=== PATIENT | male | born 1965 | race Caucasian/White ===

== ENCOUNTER 2016-10-25 00:19 | Emergency (ER) | payer MEDICARE ==
[2016-10-25] MEDS ORDERED: Robitussin AC Syrup Unit Dose Cup PO PRN (00:21)
[2016-10-25] MEDS ORDERED: Rocephin 1000 MG INJ IM ONE (00:21)
[2016-10-25] MEDS ORDERED: Zithromax 250 MG TABLET PO ONE (00:21)
--- NOTE | 2016-10-25 00:27 | ERPHSYRPT ---
- History of Present Illness Time Seen by Provider: 10/25/16 00:19 Source: patient Exam Limitations: no limitations Physician History: TODAY PT HAS HAD A NON-PRODUCTIVE COUGH AND FEVER UP TO 103 DEGREES; DENIES CHEST PAIN, ABDOMINAL PAIN, VOMITING. Allergies/Adverse Reactions: No Known Drug Allergies Allergy (Unverified 08/02/13 05:15) Home Medications: Allopurinol 100 mg [Zyloprim 100 mg] 100 mg PO DAILY 08/02/13 [History] Carvedilol 12.5 mg [Coreg 12.5 mg] 12.5 mg PO DAILY 08/02/13 [History] Clopidogrel Bisulfate 75 mg [PLAVIX 75 MG Tablet] 75 mg PO DAILY 08/02/13 [History] Fluoxetine HCl 20 mg [Prozac 20 MG] 20 mg PO DAILY 08/02/13 [History] Glipizide 10 mg [Glucotrol 10 MG] 10 mg PO BID 08/02/13 [History] Lisinopril 5 mg [Zestril 5 MG] 5 mg PO DAILY 08/02/13 [History] Metformin HCl 500 mg [Glucophage 500 MG] 500 mg PO DAILY 08/02/13 [History ] Simvastatin 10 mg [Zocor 10MG] 10 mg PO DAILY 08/02/13 [History] Hx Tetanus, Diphtheria Vaccination/Date Given: (unsure) Hx Influenza Vaccination/Date Given: Yes (2012) Hx Pneumococcal Vaccination/Date Given: Yes - Review of Systems Constitutional: Fever Respiratory: Cough Cardiac: No Chest Pain Abdominal/Gastrointestinal: No Abdominal Pain, No Vomiting All Other Systems: Reviewed and Negative - Past Medical History Pertinent Past Medical History: Yes Neurological History: Stroke ENT History: No Pertinent History Cardiac History: Hypertension Respiratory History: No Pertinent History Endocrine Medical History: Diabetes Type II Musculoskeletal History: No Pertinent History GI Medical History: No Pertinent History History: No Pertinent History Psycho-Social History: Anxiety Male Reproductive Disorders: No Pertinent History Other Medical History: Gout - Past Surgical History Past Surgical History: Yes Neuro Surgical History: No Pertinent History Cardiac: No Pertinent History Respiratory: No Pertinent History Gastrointestinal: No Pertinent History Genitourinary: No Pertinent History Musculoskeletal: Other Male Surgical History: No Pertinent History Other Surgical History: foot surgery - Social History Smoking Status: Never smoker Exposure to second hand smoke: No Drug Use: none Patient Lives Alone: Yes - Physical Exam General Appearance: alert Eye Exam: other (EXOTROPIA) Ears, Nose, Throat Exam: moist mucous membranes, other (CERUMEN OCCLUSION OF BOTH EARS) Neck Exam: normal inspection Respiratory Exam: other (BRONCHIAL BREATH SOUNDS OVER ALL [place].) Cardiovascular Exam: normal heart sounds Gastrointestinal/Abdomen Exam: soft, normal bowel sounds Back Exam: normal range of motion Extremity Exam: other (LEFT HEMIPARESIS(ONGOING).), No pedal edema Neurologic Exam: alert, cooperative Skin Exam: warm, dry - Course Nursing assessment & vital signs reviewed: Yes - Departure Time of Disposition: 00:28 Departure Disposition: Home Clinical Impression: BRONCHITIS Condition: Fair Critical Care Time: No Instructions: Bronchitis Additional Instructions: FOLLOW UP WITH PRIVATE DOCTOR TOMORROW. Prescriptions: Guaifenesin/Codeine Phosphate [Robitussin AC Syrup] 10 ml PO Q4H PRN PRN #120 ml PRN Reason: Cough Azithromycin 250 mg [Zithromax 250 MG TABLET] 250 mg PO ZPACK #6 tablet
[2016-10-25] MEDS ORDERED: Zithromax 250 MG TABLET ONE (00:34)
[2016-10-25] MEDS ORDERED: Rocephin 1000 MG INJ ONE (00:34)
[2016-10-25] MEDS ORDERED: Robitussin AC Syrup Unit Dose Cup ONE (00:34)
[2016-10-25 01:23] VITALS: BP 114/67; PULSE 84; O2SAT 93
== END 2016-10-25 01:24 | disposition home or self-care (01) ==
LOC: ED 00:19
DX: J40 Bronchitis, not specified as acute or chronic (principal); R50.9 Fever, unspecified; R05 Cough; E11.8 Type 2 diabetes mellitus with unspecified complications; I10 Essential (primary) hypertension; Z79.84 Long term (current) use of oral hypoglycemic drugs; Z79.899 Other long term (current) drug therapy
CPT/HCPCS: 99283; A9270 ×2; J0696

== ENCOUNTER 2019-10-05 21:30 | Emergency (ER) | payer MEDICARE ==
--- NOTE | 2019-10-05 22:13 | ERPHSYRPT ---
- History of Present Illness Source: patient, family Exam Limitations: no limitations Patient Subjective Stated Complaint: Patient states " i have been running a fever all day". Patient states " I have been having an annoying cough. Triage Nursing Assessment: Patient arrived to ER with Mother. Patient gait slow and steady. Patient A/O times 4. Patient answers questions appropriatley. Patient states he has been running a fever all day and that it has gotten up to 101. Mother states she has been giving him Tylenol most of day. Mother concerned she is to have surgery on Sunday. Patient bilateral lungs clear A/ P throughout. Patient denies SOB. Patient denies chest pain. No respiratory distress noted. Patient states he isn't coughing up anything. Patient with Left Hemiplegia R/T S/P stroke in 2010. Patient denies pain or discomfort. Temp upon arrival 98.5 oral. Oral mucosa clean, pink, moist. Skin turgor < 3 seconds. No S /S of dehydration noted. Physician History: Cough and fever today. Timing/Duration: today Cough Quality/Degree: dry cough Possible Cause: no prior episodes Modifying Factors: Improves With: nothing Associated Symptoms: fever, cough International travel in last 2 weeks: No Allergies/Adverse Reactions: No Known Drug Allergies Allergy (Unverified 10/05/19 21:56) Home Medications: Allopurinol 100 mg [Zyloprim 100 mg] 100 mg PO DAILY 08/02/13 [History] Carvedilol 12.5 mg [Coreg 12.5 mg] 12.5 mg PO DAILY 08/02/13 [History] Clopidogrel Bisulfate 75 mg [PLAVIX 75 MG Tablet] 75 mg PO DAILY 08/02/13 [History] Fluoxetine HCl 20 mg [Prozac 20 MG] 20 mg PO DAILY 08/02/13 [History] Glipizide 10 mg [Glucotrol 10 MG] 10 mg PO BID 08/02/13 [History] Lisinopril 5 mg [Zestril 5 MG] 5 mg PO DAILY 08/02/13 [History] Metformin HCl 500 mg [Glucophage 500 MG] 500 mg PO DAILY 08/02/13 [History ] Simvastatin 10 mg [Zocor 10MG] 10 mg PO DAILY 08/02/13 [History] Hx Tetanus, Diphtheria Vaccination/Date Given: Yes Hx Influenza Vaccination/Date Given: Yes Hx Pneumococcal Vaccination/Date Given: Yes Immunizations Up to Date: Yes - Review of Systems Constitutional: Fever, No Chills Eyes: No Symptoms Ears, Nose, & Throat: No Symptoms Respiratory: Cough, No Dyspnea Cardiac: No Chest Pain, No Edema, No Syncope Abdominal/Gastrointestinal: No Abdominal Pain, No Nausea, No Vomiting, No Diarrhea Genitourinary Symptoms: No Dysuria Musculoskeletal: No Back Pain, No Neck Pain Skin: No Rash Neurological: No Dizziness, No Focal Weakness, No Sensory Changes Psychological: No Symptoms Endocrine: No Symptoms All Other Systems: Reviewed and Negative - Past Medical History Pertinent Past Medical History: Yes Neurological History: Stroke ENT History: No Pertinent History Cardiac History: Hypertension Respiratory History: No Pertinent History Endocrine Medical History: Diabetes Type II Musculoskeletal History: No Pertinent History GI Medical History: No Pertinent History History: No Pertinent History Psycho-Social History: Anxiety Male Reproductive Disorders: No Pertinent History Other Medical History: Gout, left hemiplegia s/p stroke - Past Surgical History Past Surgical History: Yes Neuro Surgical History: No Pertinent History Cardiac: No Pertinent History Respiratory: No Pertinent History Gastrointestinal: No Pertinent History Genitourinary: No Pertinent History Musculoskeletal: Other Male Surgical History: No Pertinent History Other Surgical History: foot surgery - Social History Smoking Status: Never smoker Exposure to second hand smoke: No Drug Use: none Patient Lives Alone: Yes - Nursing Vital Signs Nursing Vital Signs: Initial Vital Signs Temperature 98.5 F 10/05/19 21:46 Pulse Rate 91 H 10/05/19 21:46 Respiratory Rate 16 10/05/19 21:46 Blood Pressure 125/70 10/05/19 21:46 O2 Sat by Pulse Oximetry 92 L 10/05/19 21:46 Pain Scale Pain Intensity 0 - Physical Exam General Appearance: no apparent distress, alert Eye Exam: PERRL/EOMI, eyes nml inspection Ears, Nose, Throat Exam: normal ENT inspection, TMs normal, pharynx normal, moist mucous membranes Neck Exam: normal inspection, non-tender, supple, full range of motion Respiratory Exam: normal breath sounds, lungs clear, No respiratory distress Cardiovascular Exam: regular rate/rhythm, normal heart sounds Gastrointestinal/Abdomen Exam: soft, No tenderness Rectal Exam: deferred Back Exam: normal inspection, No CVA tenderness, No vertebral tenderness Extremity Exam: normal inspection, normal range of motion Neurologic Exam: alert, oriented x 3, cooperative, normal mood/affect, sensation nml, No motor deficits Skin Exam: normal color, warm, dry, No rash Lymphatic Exam: No adenopathy SpO2: 92 - Course Nursing assessment & vital signs reviewed: Yes Ordered Tests: Medication Summary Generic Name Dose Route Start Last Admin Trade Name Chavez PRN Reason Stop Dose Admin Azithromycin 500 mg 10/05/19 23:21 Zithromax 250 Mg Tablet PO 10/05/19 23:22 STAT ONE Lab/Rad Data: Laboratory Results 10/05/19 Range/Units 21:51 Influenza Type A Ag NEGATIVE (NEGATIVE) Influenza Type B Ag NEGATIVE (NEGATIVE) RSV (PCR) NEGATIVE (Negative) Group A Strep Antibody NEGATIVE (NEGATIVE) - Progress Progress: improved Air Movement: good Progress Note: 10/05/19 23:22 Swabs negative. Given patient's fever and cough, will treated as bronchitis. Patient otherwise looks and appears normal. Examination was completely benign. Will discharge home on Z-Alec. Antibiotics given: No Counseled pt/family regarding: lab results, diagnosis, need for follow-up - Departure Departure Disposition: Home Clinical Impression: Bronchitis Condition: Stable Critical Care Time: No Referrals: KADEEM LEE MD [Primary Care Provider] - Instructions: Acute Bronchitis Additional Instructions: Take meds as prescribed. Tylenol or motrin for fever. Hydration. Follow up with PCP in 2-3 days for recheck. Return to ER if worse. Prescriptions: Amoxicillin/Potassium Clav [Augmentin 875-125 Tablet] 1 each PO BID 10 Days #20 tablet
[2019-10-05 23:12] LABS: Group A Strep NEGATIVE (NEGATIVE); INFLUENZA A NEGATIVE (NEGATIVE); INFLUENZA B NEGATIVE (NEGATIVE); RESPIRATORY SYNCTIAL VIRUS NEGATIVE (Negative)
[2019-10-05] MEDS ORDERED: Zithromax 250 MG TABLET PO ONE (23:21)
[2019-10-05] MEDS ORDERED: Zithromax 250 MG TABLET ONE (23:27)
[2019-10-05 23:36] VITALS: BP 127/66; PULSE 92; O2SAT 93
== END 2019-10-05 23:43 | disposition home or self-care (01) ==
LOC: ED 21:30
DX: J40 Bronchitis, not specified as acute or chronic (principal)
CPT/HCPCS: 87631; 87651; 99283; A9270-GY

== ENCOUNTER 2022-02-10 13:50 | Emergency (ER) | payer MEDICARE ==
--- NOTE | 2022-02-10 14:08 | ERPHSYRPT ---
- History of Present Illness Time Seen by Provider: 02/10/22 14:08 Source: patient Exam Limitations: no limitations Physician History: This is a 56-year-old white male patient has a history of renal issues and sees Dr. Swenson (digital imager) for this issue. He also has a history of elevated cholesterol, diabetes hypertension and gout. He is on Plavix. His primary care doctor is Dr. Lee. Patient recently was discharged from an outside facility and his digital imager ordered labs which she was getting obtained when he fell and hit his head. Patient did receive in-hospital dialysis but has not yet been scheduled for outpatient dialysis. Patient stated that he turned and twisted and lost his balance and fell. He stated that he did not pass out. Lab sent the patient to the emergency department for evaluation. His systolic blood pressures in the 90s upon arrival. Lab had not drawn his blood yet. I am not ordering any labs since they have already been drawn. A urinalysis was also ordered and we will await these lab results. We will change the order to stat labs. Occurred: just prior to arrival Injuries/Pain Location: head (1-1/2 cm laceration left lateral periorbital area) Loss of Consciousness: no loss of consciousness Severity of Pain-Max: none Severity of Pain-Current: none Modifying Factors: Improves With: nothing Associated Symptoms (Fall): denies symptoms Allergies/Adverse Reactions: No Known Drug Allergies Allergy (Verified 02/10/22 14:23) Home Medications: Allopurinol 100 mg [Zyloprim 100 mg] 100 mg PO DAILY 08/02/13 [History] Carvedilol 12.5 mg [Coreg 12.5 mg] 12.5 mg PO DAILY 08/02/13 [History] Clopidogrel Bisulfate [PLAVIX 75 MG Tablet] 75 mg PO DAILY 08/02/13 [History] Fluoxetine HCl 20 mg [Prozac 20 MG] 20 mg PO DAILY 08/02/13 [History] Glipizide 10 mg [Glucotrol 10 MG] 10 mg PO BID 08/02/13 [History] Lisinopril 5 mg [Zestril 5 MG] 5 mg PO DAILY 08/02/13 [History] Metformin HCl 500 mg [Glucophage 500 MG] 500 mg PO DAILY 08/02/13 [History] Simvastatin 10 mg [Zocor 10MG] 10 mg PO DAILY 08/02/13 [History] Hx Tetanus, Diphtheria Vaccination/Date Given: Yes Hx Influenza Vaccination/Date Given: Yes Hx Pneumococcal Vaccination/Date Given: Yes Travel Risk - International Travel Have you traveled outside of the country in past 3 weeks: No - Coronavirus Screening Are you exhibiting any of the following symptoms?: No Close contact with a COVID-19 positive Pt in past 14-21 Days: No - Review of Systems Constitutional: No Symptoms Eyes: Other (1-1/2 cm well approximated laceration left lateral periorbital area), No Eye Pain, No Eye Redness, No Vision Changes Ears, Nose, & Throat: No Symptoms Respiratory: No Symptoms Cardiac: No Symptoms Abdominal/Gastrointestinal: No Symptoms Genitourinary Symptoms: No Symptoms Musculoskeletal: No Symptoms Skin: No Symptoms Neurological: No Symptoms Psychological: No Symptoms Endocrine: No Symptoms Hematologic/Lymphatic: No Symptoms Immunological/Allergic: No Symptoms All Other Systems: Reviewed and Negative - Past Medical History Pertinent Past Medical History: Yes Neurological History: Stroke ENT History: No Pertinent History Cardiac History: Hypertension Respiratory History: No Pertinent History Endocrine Medical History: Diabetes Type II Musculoskeletal History: No Pertinent History GI Medical History: No Pertinent History History: No Pertinent History Psycho-Social History: Anxiety Male Reproductive Disorders: No Pertinent History Other Medical History: Gout, left hemiplegia s/p stroke - Past Surgical History Past Surgical History: Yes Neuro Surgical History: No Pertinent History Cardiac: No Pertinent History Respiratory: No Pertinent History Gastrointestinal: No Pertinent History Genitourinary: No Pertinent History Musculoskeletal: Other Male Surgical History: No Pertinent History Other Surgical History: foot surgery - Social History Smoking Status: Never smoker Exposure to second hand smoke: No Drug Use: none Patient Lives Alone: Yes - Nursing Vital Signs Nursing Vital Signs: Initial Vital Signs Temperature 96.5 F 02/10/22 14:23 Pulse Rate 78 02/10/22 14:23 Respiratory Rate 18 02/10/22 14:23 Blood Pressure 76/47 02/10/22 14:23 O2 Sat by Pulse Oximetry 98 02/10/22 14:23 Pain Scale Pain Intensity 0 - [place]ega Coma Score Best Eye Response ([place]): (4) open spontaneously Best Verbal Response ([place]): (5) oriented Best Motor Response ([place]): (6) obeys commands [place] Total: 15 - Physical Exam General Appearance: no apparent distress, alert Head Injury: lacerations (1 and half centimeter, well approximated, not actively bleeding laceration left lateral periorbital area. No foreign body present) Eye Exam: PERRL/EOMI, eyes nml inspection ENT Exam: airway nml, nml ext.inspection, No evidence of ENT injury, No dental injury Neck Exam: supple, trachea midline, full range of motion, normal alignment, normal inspection Respiratory/Chest Exam: No chest tenderness, No respiratory distress, No accessory muscle use Gastrointestinal Exam: No tenderness Rectal Exam: not done Back Exam: normal inspection, normal range of motion, No CVA tenderness, No vertebral tenderness Extremity Exam: normal inspection, normal range of motion, capillary refill <3 sec, pelvis stable Neurologic Exam: alert, oriented x 3, cooperative, tipple supervisor II-XII nml as tested, normal mood/affect, nml cerebellar function, nml station & gait, sensation nml Skin Exam: laceration SpO2 Interpretation: normal (See above) O2 Delivery: Room Air Procedures - Laceration/Wound Repair Left Lateral Face Time of Procedure: 14:51 Wound Location: Left, face (Left lateral periorbital region) Wound Length (cm): 1.5 Wound's Depth, Shape: superficial, linear Irrigated: Yes Hibiclens Prep: Yes Wound Repaired With: Steri-strips, Dermabond Progress: 02/10/22 14:51 No complications. Patient told the procedure well. Ordered Tests: Active Orders 24 hr Category Date Time Status IV Insertion STAT Care 02/10/22 14:34 Active Wound Care STAT Care 02/10/22 15:07 Active HEAD WITHOUT CONTRAST [CT] Stat Exams 02/10/22 14:33 Completed Medication Summary Discontinued Medications Generic Name Dose Route Start Last Admin Trade Name Freq PRN Reason Stop Dose Admin Sodium Chloride 1,000 mls @ 999 mls/hr 02/10/22 14:34 02/10/22 14:38 Sodium Chloride 0.9% 1000 Ml IV 02/10/22 15:34 999 mls/hr .Q1H1M STA Administration Sodium Chloride Confirm 02/10/22 14:38 Sodium Chloride 0.9% 1000 Ml Administered 02/10/22 14:39 Dose 1,000 mls @ ud .ROUTE .[facility] - Progress Progress: improved Progress Note: 02/10/22 15:43 CAT scan of the head without contrast shows no acute intracranial bleed or infarct. There is evidence of old infarcts in the right basal ganglia. Medical decision making: This patient is no acute intracranial bleed or infarction. His creatinine is in a reasonable range at 1.5 to. His electrolytes are reasonable as well. His sodium was 132 and his potassium level is 5.4. We will discharge him to home and he is to follow-up with his digital imager and primary care physician. Counseled pt/family regarding: lab results, diagnosis, need for follow-up, rad results - Departure Departure Disposition: Home Clinical Impression: Fall with injury, Laceration of face Condition: Stable Critical Care Time: No Referrals: KADEEM LEE MD [Primary Care Provider] - Follow up/PCP as directed Additional Instructions: Keep the laceration repair site clean and dry for 36 hours. After 36 hours may wash the site daily. Blot dry use a hairdryer. Leave the Steri-Strips in place till he follow-up on their own. Stop your Plavix for 36 hours. May restart your Plavix after 36 hours. Follow-up with your digital imager and primary care doctor for further evaluation and management.
[2022-02-10] MEDS ORDERED: Sodium Chloride 0.9% 1000 ML 1,000 ML IV STA (14:34)
[2022-02-10] MEDS ORDERED: Sodium Chloride 0.9% 1000 ML 1,000 ML ONE (14:38)
--- NOTE | 2022-02-10 15:18 | XRAY ---
Exam: CT of the head without IV contrast from 02/10/2022. CTDI: 53.92 mGy Comparison: CT of the head without IV contrast from 12/31/2010. Indication: 56-year-old male fell today; history of stroke in 2010. Technique: Non-IV contrast axial images were obtained through the brain. Reconstructed coronal and sagittal images were created and reviewed. Findings: The ventricles are slightly larger than that noted on 12/31/2010, but still within normal limits of size. No focal mass effect or midline shift is seen. No acute intracranial bleed or abnormal extra-axial fluid collection is seen. I note an areas of lacunar infarctions adjacent to the lateral aspect of the right lateral ventricle within the right basal ganglia and olson radiata on axial images #33 through #40. This is not seen on 12/31/2010. It does appear old. More superiorly, there appears to be subtle low-attenuation within the right centrum semiovale suggesting white matter ischemia, also new from the prior exam. A definite new infarct is not seen. There is mild prominence of the cortical sulci and sylvian fissures. The calvarium of the skull appears intact without fracture. There is moderate soft tissue density within the inferior aspect of both maxillary sinuses without air-fluid levels. In addition, there is soft tissue density within the ethmoid sinus complex, left greater than right, the left side of the frontal sinuses, and minimally within the sphenoid sinus. These findings are consistent with chronic pansinusitis. Vascular calcification is seen within the carotid siphons as well as the vertebrobasilar system. The right mastoid air cells are normally pneumatized. There is partial opacification within the left mastoid air cells, presumed inflammatory. There appears to be probable extensive cerumen within the right external artery canal. The middle ear cavities appear unremarkable. Impression: 1. I see no evidence of acute intracranial bleed or subdural or epidural hematoma. 2. Evidence of old small infarcts within the right basal ganglia and olson radiata with some focal white matter ischemic changes within the upper right parietal white matter. Although this is new from 12/31/2010 exam, this is probably all old. 3. Chronic pansinusitis without air-fluid levels, as discussed above. 4. No fracture of the calvarium of the skull is seen. 5. Partial opacification of the left mastoid air cells, presumed inflammatory. Correlate clinically.
[2022-02-10 15:55] VITALS: BP 110/58; PULSE 85; O2SAT 100
== END 2022-02-10 16:03 | disposition home or self-care (01) ==
LOC: ED 13:50
DX: S01.112A Laceration without foreign body of left eyelid and periocular area, initial encounter (principal); W01.0XXA Fall on same level from slipping, tripping and stumbling without subsequent striking against object, initial encounter; Y92.238 Other place in hospital as the place of occurrence of the external cause; E78.5 Hyperlipidemia, unspecified; E11.9 Type 2 diabetes mellitus without complications; I10 Essential (primary) hypertension; Z79.01 Long term (current) use of anticoagulants; Z79.84 Long term (current) use of oral hypoglycemic drugs; Z79.899 Other long term (current) drug therapy
CPT/HCPCS: 12011; 36000; 36415; 70450; 80053; 81015; 82043; 82306; 82607; 82728; 82746; 83540; 83550; 83735; 84156; 85027; 87086; 96360; 99284

== ENCOUNTER 2022-02-26 08:46 | Emergency (ER) | payer MEDICARE ==
[2022-02-26] MEDS ORDERED: NORCO 5/325 MG ONE (09:07)
[2022-02-26 09:35] LABS: Absolute Neutrophil Ct (ANC) 4.82 x10^3/uL (1.4-6.9); Basophil (Absolute #) 0.04 x10^3/uL (0-0.4); Eosinophil % 9.4 % (0.00-5.0); Eosinophil (Absolute #) 0.72 x10^3/uL (0-0.5); Hematocrit 33.4 % (42-50); Lymphocyte (Absolute #) 1.39 x10^3/uL (1.0-4.6); Lymphocytes % 18.1 % (24.0-44.0); Mean Cell Volume 86.1 fL (78-100); Mean Corpuscular Hemoglobin 28.4 pg (26-32); Mean Corpuscular Hgb Concent. 32.9 g/dL (32-36); Mean Platelet Volume 9.3 fL (7.5-11.0); Monocyte (Absolute #) 0.68 x10^3/uL (0.0-1.3); Monocytes % 8.9 % (0.0-12.0); Neutrophil % 62.7 % (36.0-66.0); Platelet Count 231 x10^3/uL (150-450); Red Blood Count 3.88 x10^6/uL (4.1-5.6); Red Cell Distribution Width 14.6 % (11.5-14.0); White Blood Count 7.7 x10^3/uL (4.0-10.5)
[2022-02-26] MEDS ORDERED: NORCO 5/325 MG PO ONE (09:38)
[2022-02-26 09:47] LABS: ALBUMIN 3.8 g/dL (3.5-5.0); ALKALINE PHOSPHATASE 81 U/L (38-126); ANION GAP 15.5 MEQ/L (5-15); BLOOD UREA NITROGEN 11 mg/dL (9-20); CHLORIDE 102 mmol/L (98-107); Calcium 9.1 mg/dL (8.4-10.2); Carbon Dioxide 21 mmol/L (22-30); Creatinine 1 1.05 mg/dL (0.66-1.25); EST GLOMERULAR FILTRATION RATE > 60.0 ML/MIN; Glucose 167 mg/dL (74-106); Potassium 4.1 mmol/L (3.5-5.1); SGOT/AST 19 U/L (17-59); SGPT/ALT 13 U/L (0-50); SODIUM 134 mmol/L (137-145); Uric Acid 6.2 mg/dL (3.5-7.2)
[2022-02-26 09:52] VITALS: O2SAT 98
--- NOTE | 2022-02-26 10:10 | ERPHSYRPT ---
- History of Present Illness Time Seen by Provider: 02/26/22 09:37 Source: patient, family Exam Limitations: no limitations Patient Subjective Stated Complaint: Pt states "My right elbow hurts." Triage Nursing Assessment: PT presented alert and oriented X 3, skin pwd.Pt supporting his right arm. Pt denied any fall. PT right elbow tender to touch. Physician History: 56 years old presented in the ER with sudden onset right elbow pain and swelling noticed this morning without any trauma. Dull aching to sharp moderate intensity, more with movements, palpation and better with keeping a certain position. Also noticed warmness around the elbow but no redness.Full range of motion possible but painful. No difficulty movements at wrist and fingers. Does have history of gout and taking allopurinol. Occurred: this morning Method of Injury: unknown Quality: sharpness Severity of Pain-Max: moderate Severity of Pain-Current: moderate Extremities Pain Location: elbow: right Modifying Factors: Improves With: immobilization. Worsens With: movement Allergies/Adverse Reactions: No Known Drug Allergies Allergy (Verified 02/10/22 14:23) Home Medications: Allopurinol 100 mg [Zyloprim 100 mg] 100 mg PO DAILY 08/02/13 [History] Carvedilol 12.5 mg [Coreg 12.5 mg] 12.5 mg PO DAILY 08/02/13 [History] Clopidogrel Bisulfate [PLAVIX 75 MG Tablet] 75 mg PO DAILY 08/02/13 [History] Fluoxetine HCl 20 mg [Prozac 20 MG] 20 mg PO DAILY 08/02/13 [History] Glipizide 10 mg [Glucotrol 10 MG] 10 mg PO BID 08/02/13 [History] Lisinopril 5 mg [Zestril 5 MG] 5 mg PO DAILY 08/02/13 [History] Metformin HCl 500 mg [Glucophage 500 MG] 500 mg PO DAILY 08/02/13 [His tory] Simvastatin 10 mg [Zocor 10MG] 10 mg PO DAILY 08/02/13 [History] Ferrous Sulfate 325 mg [Feosol 325 mg] 325 mg PO DAILY 02/26/22 [History] Linagliptin [Tradjenta] 5 mg PO DAILY 02/26/22 [History] Magnesium Oxide [Mag-Oxide] 400 mg PO BID 02/26/22 [History] Hx Tetanus, Diphtheria Vaccination/Date Given: Yes Hx Influenza Vaccination/Date Given: Yes Hx Pneumococcal Vaccination/Date Given: Yes Immunizations Up to Date: Yes Travel Risk - International Travel Have you traveled outside of the country in past 3 weeks: No - Coronavirus Screening Are you exhibiting any of the following symptoms?: No Close contact with a COVID-19 positive Pt in past 14-21 Days: No - Vaccine Status Have you recieved a Covid-19 vaccination: Yes 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 - Vaccination Dates Date of 2cond Vaccination (if applicable): na Dates if Unknown: na - Review of Systems Constitutional: No Symptoms Ears, Nose, & Throat: No Symptoms Respiratory: No Symptoms Cardiac: No Symptoms Abdominal/Gastrointestinal: No Symptoms Genitourinary Symptoms: No Symptoms Musculoskeletal: Joint Pain, Joint Swelling Skin: No Symptoms Neurological: No Symptoms Endocrine: No Symptoms Hematologic/Lymphatic: No Symptoms Immunological/Allergic: No Symptoms - Past Medical History Pertinent Past Medical History: Yes Neurological History: Stroke ENT History: No Pertinent History Cardiac History: Hypertension Respiratory History: No Pertinent History Endocrine Medical History: Diabetes Type II Musculoskeletal History: No Pertinent History GI Medical History: No Pertinent History History: No Pertinent History Psycho-Social History: Anxiety Male Reproductive Disorders: No Pertinent History Other Medical History: Gout, left hemiplegia s/p stroke - Past Surgical History Past Surgical History: Yes Neuro Surgical History: No Pertinent History Cardiac: No Pertinent History Respiratory: No Pertinent History Gastrointestinal: No Pertinent History Genitourinary: No Pertinent History Musculoskeletal: Other Male Surgical History: No Pertinent History Other Surgical History: foot surgery - Social History Smoking Status: Never smoker Exposure to second hand smoke: No Drug Use: none Patient Lives Alone: Yes - Nursing Vital Signs Nursing Vital Signs: Initial Vital Signs Temperature 96.4 F 02/26/22 08:49 Pulse Rate 85 02/26/22 08:49 Respiratory Rate 20 02/26/22 08:49 Blood Pressure 155/98 02/26/22 08:49 O2 Sat by Pulse Oximetry 96 02/26/22 08:49 Pain Scale Pain Intensity 4 - Physical Exam General Appearance: no apparent distress, alert Eyes, Ears, Nose, Throat Exam: normal ENT inspection Neck Exam: normal inspection, non-tender, supple, full range of motion Cardiovascular/Respiratory Exam: chest non-tender, normal breath sounds, regular rate/rhythm Shoulder Exam: normal inspection, non-tender, no evidence of injury, normal ROM Elbow/Forearm Exam: bone tenderness, pain, soft tissue tenderness (Right elbow, mild increased temperature. No erythema.), swelling Wrist Exam: normal inspection, non-tender, no evidence of injury, normal ROM Hand Exam: normal inspection, non-tender, no evidence of injury Neuro/Tendon Exam: normal sensation, normal motor functions Mental Status Exam: alert, oriented x 3, cooperative Skin Exam: normal color SpO2 Interpretation: normal SpO2: 98 O2 Delivery: Room Air Ordered Tests: Active Orders 24 hr Category Date Time Status ELBOW (MINIMUM 3 VIEWS) Stat Exams 02/26/22 09:30 Taken CBC W DIFF Stat Lab 02/26/22 09:30 Completed CMP Stat Lab 02/26/22 09:30 Completed Uric Acid Stat Lab 02/26/22 09:30 Completed Medication Summary Discontinued Medications Generic Name Dose Route Start Last Admin Trade Name Chavez PRN Reason Stop Dose Admin Hydrocodone Bitart/Acetaminophen Confirm 02/26/22 09:07 Hydrocodone/Apap 5/325 Mg Tablet Administered 02/26/22 09:08 Dose 1 tab .ROUTE .STK-MED ONE Hydrocodone Bitart/Acetaminophen 1 tab 02/26/22 09:38 02/26/22 09:40 Hydrocodone/Apap 5/325 Mg Tablet PO 02/26/22 09:39 1 tab STAT ONE Administration Lab/Rad Data: Laboratory Result Diagrams 02/26/22 09:30 02/26/22 09:30 Laboratory Results 02/26/22 02/26/22 Range/Units 09:30 09:30 WBC 7.7 (4.0-10.5) x10^3/uL RBC 3.88 L (4.1-5.6) x10^6/uL Hgb 11.0 L (12.5-18.0) g/dL Hct 33.4 L (42-50) % MCV 86.1 (78-100) fL MCH 28.4 (26-32) pg MCHC 32.9 (32-36) g/dL RDW 14.6 H (11.5-14.0) % Plt Count 231 (150-450) x10^3/uL MPV 9.3 (7.5-11.0) fL Gran % 62.7 (36.0-66.0) % Immature Gran % (Auto) 0.4 (0.00-0.4) % Nucleat RBC Rel Count 0.0 (0.00-0.1) % Eos # (Auto) 0.72 H (0-0.5) x10^3/uL Immature Gran # (Auto) 0.03 (0.00-0.03) x10^3u/L Absolute Lymphs (auto) 1.39 (1.0-4.6) x10^3/uL Absolute Monos (auto) 0.68 (0.0-1.3) x10^3/uL Absolute Nucleated RBC 0.00 (0.00-0.01) x10^3u/L Lymphocytes % 18.1 L (24.0-44.0) % Monocytes % 8.9 (0.0-12.0) % Eosinophils % 9.4 H (0.00-5.0) % Basophils % 0.5 (0.0-0.4) % Absolute Granulocytes 4.82 (1.4-6.9) x10^3/uL Basophils # 0.04 (0-0.4) x10^3/uL Sodium 134 L (137-145) mmol/L Potassium 4.1 (3.5-5.1) mmol/L Chloride 102 (98-107) mmol/L Carbon Dioxide 21 L (22-30) mmol/L Anion Gap 15.5 H (5-15) MEQ/L BUN 11 (9-20) mg/dL Creatinine 1.05 (0.66-1.25) mg/dL Estimated GFR > 60.0 ML/MIN Glucose 167 H (74-106) mg/dL Uric Acid 6.2 (3.5-7.2) mg/dL Calcium 9.1 (8.4-10.2) mg/dL Total Bilirubin 0.40 (0.2-1.3) mg/dL AST 19 (17-59) U/L ALT 13 (0-50) U/L Alkaline Phosphatase 81 (38-126) U/L Serum Total Protein 7.0 (6.3-8.2) g/dL Albumin 3.8 (3.5-5.0) g/dL - Progress Progress: pain not gone completely Progress Note: 02/26/22 10:08 Given [place] for symptomatic relief and pain is better on reevaluation. Has normal white count and grossly unremarkable chemistries including uric acid. X- rays negative for any acute fracture dislocation reviewed by me, official report is pending. I believe patient has bursitis, will do NSAIDs, outpatient follow- up with orthopedic surgery. Placed in sling. Discussed signs symptoms of worsening needing return to ER which patient/mom seem understanding. Counseled pt/family regarding: lab results, diagnosis, need for follow-up, rad results - Departure Departure Disposition: Home Clinical Impression: Bursitis of elbow Condition: Stable Critical Care Time: No Referrals: KADEEM LEE MD [Primary Care Provider] - Follow up/PCP as directed (tomorrow for evaluation) LISS - ROBBIN WATSON NP [NON-STAFF PHY W/O PRIVILEGES] - Follow up/PCP as directed (Tomorrow for reevaluation) Instructions: Olecranon Bursitis Additional Instructions: Abdominal/ibuprofen as needed. Intermittent ice application. Follow-up with primary care/orthopedic surgery for reevaluation. Return to ER for worsening pain, difficulty movements of elbow, increased swelling, fever chills etc. Prescriptions: Ibuprofen 600 mg PO Q6HPRN PRN 10 Days #20 tablet PRN Reason: Pain
[2022-02-26 10:45] VITALS: BP 132/88; PULSE 84
--- NOTE | 2022-02-26 17:41 | XRAY ---
Indication: Pain. No known injury. History of gout. Comparison: None 3 view right elbow demonstrates a few posterior elbow punctate heterotopic ossifications other degenerative versus sequela old injury/inflammation. No other bony, articular, or soft tissue abnormalities.
== END 2022-02-26 10:54 | disposition home or self-care (01) ==
LOC: ED 08:46
DX: M70.31 Other bursitis of elbow, right elbow (principal); M25.521 Pain in right elbow; I10 Essential (primary) hypertension; E11.9 Type 2 diabetes mellitus without complications; Z79.02 Long term (current) use of antithrombotics/antiplatelets; Z79.899 Other long term (current) drug therapy
CPT/HCPCS: 36415; 73080; 80053; 84550; 85025; 99283; A9270-GY

== ENCOUNTER 2023-07-05 20:38 | Emergency (ER) | payer MEDICARE ==
--- NOTE | 2023-07-05 20:46 | ERPHSYRPT ---
- History of Present Illness Time Seen by Provider: 07/05/23 20:46 Source: patient, family Exam Limitations: no limitations Physician History: This is a 57-year-old white male patient of Dr. Lee who has a history of chronic renal disease on dialysis, hyperlipidemia, diabetes, hypertension, gout, left hemiplegia and anxiety and presents to the emergency department because of left side rib pain and right anterior knee pain after [place] the [place] station prior to arrival. He did not hit his head. He has no headache he has no neck pain. His only complaint is pain of the left lateral chest/ribs and right anterior knee. He did not lose consciousness. Patient is on Plavix. Occurred: just prior to arrival Reason for Fall: tripped Injuries/Pain Location: chest (Left lateral ribs), lower extremity (Right anterior knee) Loss of Consciousness: no loss of consciousness Quality: aching Severity of Pain-Max: mild Severity of Pain-Current: mild Modifying Factors: Improves With: movement Associated Symptoms (Fall): denies symptoms Allergies/Adverse Reactions: No Known Drug Allergies Allergy (Verified 07/05/23 20:56) Home Medications: Allopurinol 100 mg [Zyloprim 100 mg] 100 mg PO DAILY 08/02/13 [History] Carvedilol 12.5 mg [Coreg 12.5 mg] 12.5 mg PO DAILY 08/02/13 [History] Clopidogrel Bisulfate [PLAVIX 75 MG Tablet] 75 mg PO DAILY 08/02/13 [History] Fluoxetine HCl 20 mg [Prozac 20 MG] 20 mg PO DAILY 08/02/13 [History] Glipizide 10 mg [Glucotrol 10 MG] 10 mg PO BID 08/02/13 [History] Lisinopril 5 mg [Zestril 5 MG] 5 mg PO DAILY 08/02/13 [History] Simvastatin 10 mg [Zocor 10MG] 10 mg PO DAILY 08/02/13 [History] Linagliptin [Tradjenta] 5 mg PO DAILY 02/26/22 [History] Magnesium Oxide [Mag-Oxide] 400 mg PO BID 02/26/22 [History] Aspirin EC 81 mg [Ecotrin 81 mg] 81 mg PO DAILY 07/05/23 [History] Insulin Glargine [Lantus Insulin] 35 unit SQ DAILY 07/05/23 [History] Semaglutide [Rybelsus] 7 mg PO DAILY 07/05/23 [History] Hx Tetanus, Diphtheria Vaccination/Date Given: Yes Hx Influenza Vaccination/Date Given: Yes Hx Pneumococcal Vaccination/Date Given: Yes Travel Risk - International Travel Have you traveled outside of the country in past 3 weeks: No - Coronavirus Screening Are you exhibiting any of the following symptoms?: No Close contact with a COVID-19 positive Pt in past 14-21 Days: No - Vaccine Status Have you recieved a Covid-19 vaccination: Yes 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 - Vaccination Dates Date of 2cond Vaccination (if applicable): na Dates if Unknown: na - Review of Systems Constitutional: No Symptoms Eyes: No Symptoms Ears, Nose, & Throat: No Symptoms Respiratory: No Symptoms Cardiac: No Symptoms Abdominal/Gastrointestinal: No Symptoms Genitourinary Symptoms: No Symptoms Musculoskeletal: Fall, Injury (Anterior knee) Skin: Other (Mild abrasion right anterior knee) Neurological: No Symptoms Psychological: No Symptoms Endocrine: No Symptoms Hematologic/Lymphatic: No Symptoms Immunological/Allergic: No Symptoms All Other Systems: Reviewed and Negative - Past Medical History Pertinent Past Medical History: Yes Neurological History: Stroke ENT History: No Pertinent History Cardiac History: Hypertension Respiratory History: No Pertinent History Endocrine Medical History: Diabetes Type II Musculoskeletal History: No Pertinent History GI Medical History: No Pertinent History History: No Pertinent History Psycho-Social History: Anxiety Male Reproductive Disorders: No Pertinent History Other Medical History: Gout, left hemiplegia s/p stroke - Past Surgical History Past Surgical History: Yes Neuro Surgical History: No Pertinent History Cardiac: No Pertinent History Respiratory: No Pertinent History Gastrointestinal: No Pertinent History Genitourinary: No Pertinent History Musculoskeletal: Other Male Surgical History: No Pertinent History Other Surgical History: foot surgery - Social History Smoking Status: Never smoker Exposure to second hand smoke: No Drug Use: none Patient Lives Alone: Yes - Nursing Vital Signs Nursing Vital Signs: Initial Vital Signs Temperature 97.2 F 07/05/23 20:50 Pulse Rate 74 07/05/23 20:50 Respiratory Rate 22 07/05/23 20:50 Blood Pressure 148/91 07/05/23 20:50 O2 Sat by Pulse Oximetry 95 07/05/23 20:50 Pain Scale Pain Intensity 8 - Meridian Coma Score Best Eye Response (Meridian): (4) open spontaneously Best Verbal Response (Vega): (5) oriented Best Motor Response (Vega): (6) obeys commands Vega Total: 15 - Physical Exam General Appearance: no apparent distress, alert, anxiety Head Injury: no evidence of injury Eye Exam: PERRL/EOMI, eyes nml inspection ENT Exam: airway nml, nml ext.inspection Neck Exam: supple, trachea midline, full range of motion, normal alignment, normal inspection Respiratory/Chest Exam: normal breath sounds, rib tenderness (Mild left lateral ribs), No chest tenderness, No respiratory distress, No ecchymosis, No crepitus, No rhonchi, No wheezing, No accessory muscle use Cardiovascular Exam: normal heart sounds, regular rate/rhythm Gastrointestinal Exam: soft, normal bowel sounds, No tenderness Rectal Exam: not done Back Exam: normal inspection, normal range of motion, No CVA tenderness, No vertebral tenderness Extremity Exam: normal range of motion, pelvis stable, other (Mild abrasion skin anterior right knee), No deformities Neurologic Exam: alert, oriented x 3, cooperative, 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 as tested, normal mood/affect, nml cerebellar function, nml station & gait, sensation nml Skin Exam: abrasion (Mild skin abrasion right anterior knee) SpO2 Interpretation: normal O2 Delivery: Room Air - Course Nursing assessment & vital signs reviewed: Yes Ordered Tests: Active Orders 24 hr Category Date Time Status CHEST 1 VIEW (PORTABLE) Stat Exams 07/05/23 21:52 Taken KNEE (3 VIEWS) Stat Exams 07/05/23 21:14 Taken - Progress Progress: unchanged, pain not gone completely Progress Note: 07/05/23 22:08 This patient's medical issue is 1 of low complexity the level of complexity in the workup performed is based on review of the patient's past medical history, review the patient's medication list, review the patient's drug allergy list, history of present illness and physical findings on examination. Workup in this patient includes x-ray of the patient's chest and x-ray of the patient's right knee. I interpreted the x-ray studies that were done (chest and right knee). Chest x- ray shows no acute cardiopulmonary process. No obvious rib fractures appreciated. X-ray of the right knee shows no acute fracture or dislocation present. Counseled pt/family regarding: diagnosis, need for follow-up, rad results Medical Desision Making - Independent Historian Additional History obtained from: Mother - Risk of complications Minimal Risk: Minimal risk of morbidity - Departure Departure Disposition: Home Clinical Impression: Fall with no significant injury, Abrasion, right knee, initial encounter Condition: Stable Critical Care Time: No Referrals: KADEEM LEE MD [Primary Care Provider] - Follow up/PCP as directed Additional Instructions: Ice pack to all tender areas 3 times a day for the next 48 hours. Keep all abrasion sites clean daily with soap and water and may apply antibiotic ointment of choice. Use Tylenol for pain control. Call your primary care provider for further evaluation and management including pain control.
[2023-07-05 21:14] VITALS: TEMP 97.2
[2023-07-05 22:12] VITALS: BP 144/87; PULSE 79; RESP 20; O2SAT 98
--- NOTE | 2023-07-06 08:16 | XRAY ---
Indication: Pain following fall. Comparison: August 02, 2013 Portable chest again demonstrates normal heart and lungs. Bony thorax intact again with mild degenerative changes. No new/acute abnormalities.
--- NOTE | 2023-07-06 08:18 | XRAY ---
Indication: Pain following fall. Comparison: None 3 view right knee demonstrates minimal medial degenerative chondrocalcinosis, tiny patella spurring, and moderate scattered vascular calcifications. No other bony, articular, or soft tissue abnormalities.
== END 2023-07-05 22:19 | disposition home or self-care (01) ==
LOC: ED 20:38
DX: S80.211A Abrasion, right knee, initial encounter (principal); W19.XXXA Unspecified fall, initial encounter; Y92.524 Gas station as the place of occurrence of the external cause; R07.81 Pleurodynia; I12.0 Hypertensive chronic kidney disease with stage 5 chronic kidney disease or end stage renal disease; E11.22 Type 2 diabetes mellitus with diabetic chronic kidney disease; N18.6 End stage renal disease; E78.5 Hyperlipidemia, unspecified; Z79.02 Long term (current) use of antithrombotics/antiplatelets; Z79.84 Long term (current) use of oral hypoglycemic drugs; Z79.4 Long term (current) use of insulin; Z79.899 Other long term (current) drug therapy; Z99.2 Dependence on renal dialysis
CPT/HCPCS: 71045; 73562; 99283